=== PATIENT | male | born 1970 | race Caucasian/White ===

== ENCOUNTER → 2016-12-07 | Outpatient (CLI) | payer BC ==
--- NOTE | 2016-12-07 10:55 | US ---
EXAMINATION TYPE: US prostate transrectal DATE OF EXAM: 12/07/2016 9:50 AM COMPARISON: NONE CLINICAL HISTORY: elevated PSA. PSA value of 2.7. This examination was performed using the transrectal probe. EXAM MEASUREMENTS: Gland Size: 3.8 x 2.2 x 4.0 cm Volume: 17.1 ml Predicted PSA: 2.1 Actual PSA (if available):2.7 TECHNOLOGIST IMPRESSION: no definitive lesion seen, calcifications in left CZ. Seminal vesicles are felt within normal limits. Prostate gland is within normal limits in size. Some central zone calcifications are seen. No worrisome peripheral zone nodule is identified. IMPRESSION: Actual PSA is felt within normal limits of predicted PSA. No worrisome nodule is identif ied. Predicted PSA = volume x 0.12 ng/ml Calculated Volume = 0.5236 x L x W x H Normal Values: Average Size = 4 x 3.5 x 2.5cm Volume = less than 30ml
== END | disposition home or self-care (01) ==
LOC: RADUSMAIN 09:05
PROVIDERS: ATTEND Family Medicine
DX: R97.20 Elevated prostate specific antigen [PSA] (principal)
CPT/HCPCS: 76872

== ENCOUNTER → 2017-07-12 | Outpatient (CLI) | payer BC ==
--- NOTE | 2017-07-12 14:53 | US ---
EXAMINATION TYPE: US kidneys/renal and bladder DATE OF EXAM: 07/12/2017 COMPARISON: NONE CLINICAL HISTORY: R31.9 HEMATURIA. gross hematuria yesterday, none today EXAM MEASUREMENTS: Right Kidney: 10.5 x 4.3 x 5.0cm cm Left Kidney: 11.7 x 5.1 x 5.5cm cm Right Kidney: wnl Left Kidney: wnl Bladder: wnl, very distended Bilateral Jets seen: lt only There is no evidence for hydronephrosis at this point in time. No shadowing nephrolithiasis is seen. No masses are identified on images saved. The urinary bladder is anechoic. Bilateral ureteral jet s are not seen. IMPRESSION: No hydronephrosis is evident bilaterally. No significant finding is seen to account for patient's sym ptoms of hematuria
== END ==
LOC: RADUSWWP 13:45
PROVIDERS: ATTEND Internal Medicine
DX: R31.9 Hematuria, unspecified (principal)
CPT/HCPCS: 76770